=== PATIENT | female | born 1955 | race Caucasian/White ===

== ENCOUNTER 2020-11-17 13:35 | Emergency (ER) | payer OTHER ==
[2020-11-17 14:23] VITALS: TEMP 98.3; BMI 33.2
[2020-11-17] MEDS ORDERED: MECLIZINE HCL 25 MG TABLET (FP) PO ONE (14:44)
[2020-11-17] MEDS ORDERED: SODIUM CHLORIDE 1,000 ML IV SCH (14:45)
[2020-11-17] MEDS ORDERED: diazePAM 5 MG TABLET PO ONE (14:58)
[2020-11-17] MEDS ORDERED: diazePAM 5 MG TABLET ONE (15:02)
[2020-11-17 15:27] LABS: BASO % 0.6 % (0-2.0); EOS % 0.9 % (0-4.5); HEMATOCRIT 42.8 % (32.4-45.2); HEMOGLOBIN 14.4 GM/dL (10.7-15.3); LYMPH % 23.7 % (8-40); MCH 25.8 pg (25.7-33.7); MCHC 33.8 g/dl (32.0-36.0); MEAN CELL VOLUME 76.6 fl (80-96); MEAN PLT VOLUME 7.1 fl (7.5-11.1); MONO % 4.9 % (3.8-10.2); NEUT % 69.9 % (42.8-82.8); PLATELET COUNT 250 K/MM3 (134-434); RBC 5.59 M/mm3 (3.60-5.2); RDW 14.9 % (11.6-15.6); WHITE BLOOD COUNT 6.7 K/mm3 (4.0-10.0)
[2020-11-17] MEDS ORDERED: ACETAMINOPHEN 500 MG TABLET (FP) PO ONE (15:36)
[2020-11-17 15:44] LABS: CHLORIDE 110 mmol/L (98-107); SODIUM 143 mmol/L (136-145)
[2020-11-17 15:47] LABS: CALCIUM 9.2 mg/dL (8.5-10.1)
[2020-11-17 15:48] LABS: ALBUMIN 3.7 g/dl (3.4-5.0); ANION GAP 5 MMOL/L (8-16); CO2 27 mmol/L (21-32); GLUCOSE,RANDOM 91 mg/dL (74-106)
[2020-11-17 15:51] LABS: BILIRUBIN,TOTAL 0.3 mg/dL (0.2-1); CREATININE 0.6 mg/dL (0.55-1.3); SGOT/AST 13 U/L (15-37); SGPT/ALT 20 U/L (13-61)
[2020-11-17 15:53] LABS: TOT PROT 7.3 g/dl (6.4-8.2)
[2020-11-17 15:54] LABS: ALK PHOS 124 U/L (45-117)
[2020-11-17] MEDS ORDERED: ACETAMINOPHEN 325 MG TABLET (FP) ONE (16:10)
[2020-11-17 17:32] VITALS: BP 127/61; PULSE 75
== END 2020-11-17 17:32 | disposition home or self-care (01) ==
LOC: JER 13:35
DX: R42 Dizziness and giddiness (principal)
CPT/HCPCS: 36415; 70450-TC; 71045-TC-FY; 80053; 84484; 85025; 93005; 93010; 99284-25